=== PATIENT | male | born 1965 | race Caucasian/White ===

== ENCOUNTER 2021-03-27 10:04 | Emergency (ER) | payer MEDICARE, BC, OTHER ==
[~2021-03-27] VITALS: Ht 175.3 cm; Wt 89.2 kg
[2021-03-27] MEDS ORDERED: PROP60TA14 PO (10:15)
[2021-03-27] MEDS ORDERED: CIAL10TA PO (10:15)
[2021-03-27] MEDS ORDERED: ALFU10TA3 PO (10:15)
[2021-03-27] MEDS ORDERED: ZOLO100T PO (10:15)
[2021-03-27] MEDS ORDERED: TEST1GEL10 TOP (10:15)
--- NOTE | 2021-03-27 12:10 | REP ---
INDICATION: neck pain radiating left arm, hx prior fracture. COMPARISON: None. TECHNIQUE: Trauma protocol with the coronal and sagittal bone window reconstructions. FINDINGS: [employer] Installer image and sagittal reconstruction show slight loss of lordosis. There is cervical spondylosis at C4-5 and greater at C5-6 with disc space narrowing posterior, osteophyte at C5-6 and minimally at C4-5 and C6-7. Anterior osteophytes at C4-5 greater than C5-6. No compression deformity or destructive lesion. The dens was intact. Its relationship to the lateral masses of C1 is normal on all projections. The coronal reconstructions there is a slight right lateral bending. The spinous processes, lamina, pedicles, facets, transverse processes and transverse foramina were intact. There is some mild central canal stenosis at C 5-6 due to posterior osteophytic spurring. AP canal diameter about 8.6 mm at its narrowest due to left-sided posterior osteophyte. There is bilateral foraminal encroachment due to uncinate and facet spurs at this level. The upper thoracic vertebral bodies and 1st 3 rib pairs seen in part were unremarkable. Medial clavicles and apices of the lung pritchard included were unremarkable. No prevertebral swelling. Airway intact. IMPRESSION: 1. Cervical spondylosis at C5-6 with some central canal stenosis and bilateral foraminal encroachment due to posterior osteophytes and uncinate spurring respectively. 2. Lesser degenerative changes without central canal stenosis or significant foraminal encroachment at the other levels. No compression deformity 3. C1-2 relationship normal on all projections. No malalignment or other acute bony abnormality. <Electronically signed by Mark Sands > 03/27/21 [id number]
--- NOTE | 2021-03-27 12:18 | REP ---
INDICATION: L shoulder pain. COMPARISON: None. TECHNIQUE: Three views FINDINGS: Between internal and external rotation views there is very slight widening of the AC joint. This suggest a grade 1 separation. And superior osteophytes are noted with a small ossific density at the superior margin of the AC joint. The glenohumeral joint shows minor degenerative changes. There is no subluxation or dislocation. Clavicle, scapula, humerus and ribs show no visible or displaced fracture. 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 No fracture, subluxation or abnormal soft tissue calcification about glenohumeral joint. <Electronically signed by Mark Sands > 03/27/21 [id number]
[2021-03-27 12:33] VITALS: BP 149/89
[2021-03-27] MEDS ORDERED: METH-1165 PO (12:39)
--- NOTE | 2021-03-30 15:05 | ED PDOC ---
Post-Departure Follow-Up radiology report faxed to [facility] Maria Black MD Mar 30, 2021 15:05
== END 2021-03-27 12:43 | disposition home or self-care (01) ==
LOC: M ED 10:04
DX: M54.12 Radiculopathy, cervical region (principal); S43.102A Unspecified dislocation of left acromioclavicular joint, initial encounter; X58.XXXA Exposure to other specified factors, initial encounter; Y92.89 Other specified places as the place of occurrence of the external cause; Z79.899 Other long term (current) drug therapy

== ENCOUNTER → 2021-04-28 | Outpatient (CLI) | payer MEDICARE, BC, OTHER ==
[~2021-04-28] MED LIST: ALFU10TA3 PO; CIAL10TA PO; METH-1165 PO; PROP60TA14 PO; TEST1GEL10 TOP; ZOLO100T PO
--- NOTE | 2021-04-28 16:13 | REP ---
INDICATION: LT SHOULDER IMPINGEMENT SYNDROME. COMPARISON: None. TECHNIQUE: Coronal oblique T1 and fat suppressed T2. Sagittal oblique fat suppressed T2. Axial [id number] and T2 FLASH. FINDINGS: Moderate hypertrophic degenerative change seen involving the acromioclavicular joint. The acromion process is type 2. There is significant detail limiting motion artifact on all images particularly the T2 weighted images. Patchy and linear T2 hyper signal is seen within the supraspinatus tendon without evidence of supraspinatus musculotendinous retraction or significant supraspinatus muscle atrophy. There is patchy T2 hyper signal seen within the infraspinatus tendon. The possible tendon resides within the bicipital groove. There is no glenohumeral joint effusion. There is fluid in the subcoracoid recess. Tiny T2 hyper signal foci are seen in the superolateral humeral head subjacent to the insertion of the supraspinatus tendon. There appears to be coracohumeral and coracoacromial ligamentous thickening but this is difficult to evaluate secondary to the motion artifact. IMPRESSION: 1. Detail limiting motion artifact as described above. 2. Supraspinatus tendinitis/tendinosis. 3. Infraspinatus tendinitis/tendinosis. 4. AC joint DJD. 5. Mild cystic degenerative changes humeral head. 6. Other findings as described above. <Electronically signed by Jace Reyes > 04/28/21 [id number]
== END ==
LOC: M PLAIMG 14:30
PROVIDERS: ATTEND Orthopaedic Surgery Sports Medicine
DX: M77.8 Other enthesopathies, not elsewhere classified (principal); M19.012 Primary osteoarthritis, left shoulder; M75.42 Impingement syndrome of left shoulder